=== PATIENT | female | born 2000 | race Caucasian/White ===

== ENCOUNTER 2025-09-29 07:14 | Emergency (ER) | payer OTHER ==
[~2025-09-29] VITALS: Ht 165.1 cm; Wt 59.0 kg
[2025-09-29 07:16] VITALS: O2SAT 100
[2025-09-29] MEDS: OXYMETAZOLINE HCL NASAL SPRAY 15ML BOTHNSTRLS STA (07:39)
[2025-09-29] MEDS: SODIUM CHLORIDE 0.9% 1,000 ML IV ONE (07:45)
[2025-09-29 08:22] LABS: BASOPHILS % 0.8 % (0.0-2.0); EOSINOPHILS % 0.4 % (0.0-5.0); HEMATOCRIT. 39.8 % (36.0-48.0); HEMOGLOBIN. 13.5 g/dL (12.0-16.0); LYMPHOCYTES % 16.9 % (20.0-50.0); MEAN PLATELET VOLUME 7.7 fl (7.4-10.4); MONOCYTES % 4.2 % (2.0-8.0); NEUTROPHILS % 77.7 % (40.0-76.0); PLATELET 454 x1000/uL (130-400); RED BLOOD CELL COUNT 4.66 mill/uL (4.2-5.4); RED CELL DISTRIBUTION WIDTH 14.7 % (11.6-14.6)
[2025-09-29 08:37] LABS: CREATININE 0.7 mg/dL (0.6-1.0); UREA NITROGEN BLOOD < 5 mg/dL (9-23)
[2025-09-29] MEDS ORDERED: TOPUD PO (08:55)
[2025-09-29 09:00] VITALS: BP 101/76; PULSE 89; RESP 16; TEMP 36.7; O2SAT 100
== END 2025-09-29 09:10 | disposition home or self-care (01) ==
LOC: ER 07:14
DX: S02.2XXA Fracture of nasal bones, initial encounter for closed fracture (principal); F31.9 Bipolar disorder, unspecified; F41.9 Anxiety disorder, unspecified; Y09 Assault by unspecified means; Y93.89 Activity, other specified; Y92.238 Other place in hospital as the place of occurrence of the external cause; Y99.8 Other external cause status
CPT/HCPCS: 99283; 80048; 85025; 36415; J7030